=== PATIENT | female | born 1950 | race Caucasian/White ===

== ENCOUNTER 2022-11-04 23:13 | Inpatient (IN) | payer MEDICARE ==
[2022-11-05 01:07] VITALS: BMI 30.9
[2022-11-05] MEDS ORDERED: Dextrose 5% in Water 1,000 ML IV PRN (01:13)
[2022-11-05] MEDS ORDERED: Dextrose 50% Abboject 50 ML SYRINGE SLOW IVP PRN (01:13)
[2022-11-05] MEDS ORDERED: HumaLOG 300 UNITS/3 ML VIAL SC PRN (01:13)
[2022-11-05 02:42] LABS: Anion Gap 13 mmol/L (10-20); BUN (Urea Nitrogen) 37 mg/dL (9.8-20.1); Calc. Creatinine Clearance 62 mL/min (70-130); Calcium 7.8 mg/dL (7.8-10.44); Carbon Dioxide 21 mmol/L (23-31); Chloride 106 mmol/L (98-107); Estimated GFR 57; Glucose 226 mg/dL (83-110); Potassium 3.9 mmol/L (3.5-5.1); Sodium 136 mmol/L (136-145)
[2022-11-05] MEDS: Cefepime 1 GM in Sodium Chloride 0.9% 100 ML IVPB SCH ×2 (02:42→13:33)
[2022-11-05 02:47] LABS: Hemoglobin 12.9 g/dL (12.0-16.0); Mean Corpuscular HGB CONC 35.5 g/dL (32.0-36.0); Mean Corpuscular Hemoglobin 32.8 pg (27.0-31.0); Mean Corpuscular Volume 92.4 fl (78.0-98.0); RBC Distribution Width 11.5 % (11.5-14.5); Red Blood Cell (RBC) Count 3.94 mill/uL (4.20-5.40); White Blood Cell (WBC) Count 21.4 10x3/uL (4.8-10.8)
[2022-11-05 03:55] LABS: Band 14 % (5-11); Lymphocytes 3 % (21-51); MDiff Complete? YES; Mean Platelet Volume 10.7 fL (7.4-10.4); Metamyelocyte 1 % (0-0); Monocytes 3 % (0-10); Neutrophil 79 % (42-75); Platelet Clumps SLIGHT; Platelet Count 60 10x3/uL (130-400); Platelet Morphology Comment Appears Decreased; Polychromasia SLIGHT = 2-3 cells (100X) (0-2/hpf); Vacuoles SLIGHT
[2022-11-05] MEDS ORDERED: Sodium Chloride 0.9% 1,000 ML IV SCH (04:15)
[2022-11-05] MEDS: HumaLOG 300 UNITS/3 ML VIAL SC PRN (05:57)
[2022-11-05] MEDS: Acetaminophen 325 MG TAB PO PRN (10:53)
[2022-11-05] MEDS: Ondansetron PF 4 MG/2 ML Vial IVP PRN ×2 (13:32→20:53)
[2022-11-05] MEDS: Glimepiride 4 MG TAB PO SCH (16:35)
[2022-11-06] MEDS: Cefepime 1 GM in Sodium Chloride 0.9% 100 ML IVPB SCH ×2 (01:26→15:53)
[2022-11-06 04:38] LABS: Hemoglobin 13.1 g/dL (12.0-16.0); Mean Corpuscular HGB CONC 32.7 g/dL (32.0-36.0); Mean Corpuscular Hemoglobin 30.4 pg (27.0-31.0); Mean Corpuscular Volume 92.9 fl (78.0-98.0); Mean Platelet Volume 10.9 fL (7.4-10.4); Platelet Count 84 10x3/uL (130-400); RBC Distribution Width 11.5 % (11.5-14.5); Red Blood Cell (RBC) Count 4.32 mill/uL (4.20-5.40); White Blood Cell (WBC) Count 20.8 10x3/uL (4.8-10.8)
[2022-11-06 05:20] LABS: Anion Gap 15 mmol/L (10-20); BUN (Urea Nitrogen) 21 mg/dL (9.8-20.1); Calc. Creatinine Clearance 78 mL/min (70-130); Calcium 8.8 mg/dL (7.8-10.44); Carbon Dioxide 19 mmol/L (23-31); Chloride 107 mmol/L (98-107); Estimated GFR 75; Glucose 258 mg/dL (83-110); Potassium 3.8 mmol/L (3.5-5.1); Sodium 137 mmol/L (136-145)
[2022-11-06 05:45] LABS: Band 12 % (5-11); Eosinophils 2 % (0-10); Lymphocytes 11 % (21-51); MDiff Complete? YES; Monocytes 4 % (0-10); Neutrophil 71 % (42-75); Platelet Morphology Comment Appears Decreased
[2022-11-06] MEDS: Glimepiride 4 MG TAB PO SCH ×2 (08:11→17:37)
[2022-11-06] MEDS: Sertraline 25 MG TAB PO SCH (08:11)
[2022-11-06] MEDS: Amlodipine 10 MG TAB PO SCH (08:12)
[2022-11-06] MEDS: Ezetimibe 10 MG TAB PO SCH (08:12)
[2022-11-06] MEDS: HumaLOG 300 UNITS/3 ML VIAL SC PRN ×2 (12:13→17:37)
[2022-11-06] MEDS: Acetaminophen 325 MG TAB PO PRN ×2 (14:38→20:36)
[2022-11-06] MEDS: Melatonin 3 MG TAB PO PRN (20:35)
[2022-11-07] MEDS: Cefepime 1 GM in Sodium Chloride 0.9% 100 ML IVPB SCH (01:48)
[2022-11-07 05:20] LABS: Hemoglobin 12.8 g/dL (12.0-16.0); Mean Corpuscular HGB CONC 33.8 g/dL (32.0-36.0); Mean Corpuscular Hemoglobin 30.8 pg (27.0-31.0); Mean Corpuscular Volume 91.3 fl (78.0-98.0); Mean Platelet Volume 10.3 fL (7.4-10.4); Platelet Count 111 10x3/uL (130-400); RBC Distribution Width 11.6 % (11.5-14.5); Red Blood Cell (RBC) Count 4.17 mill/uL (4.20-5.40); White Blood Cell (WBC) Count 13.2 10x3/uL (4.8-10.8)
[2022-11-07 05:27] LABS: Anion Gap 15 mmol/L (10-20); BUN (Urea Nitrogen) 14 mg/dL (9.8-20.1); Calc. Creatinine Clearance 94 mL/min (70-130); Carbon Dioxide 22 mmol/L (23-31); Chloride 106 mmol/L (98-107); Estimated GFR 91; Glucose 197 mg/dL (83-110); Potassium 3.6 mmol/L (3.5-5.1); Sodium 139 mmol/L (136-145)
[2022-11-07 05:52] LABS: Band 3 % (5-11); Eosinophils 2 % (0-10); Lymphocytes 14 % (21-51); MDiff Complete? YES; Monocytes 7 % (0-10); Neutrophil 74 % (42-75); Platelet Morphology Comment Appears Decreased; Polychromasia SLIGHT = 2-3 cells (100X) (0-2/hpf); Tear Drops SLIGHT = 2-5 cells (100X) (0-1/hpf)
[2022-11-07] MEDS: Sertraline 25 MG TAB PO SCH (09:50)
[2022-11-07] MEDS: Glimepiride 4 MG TAB PO SCH ×2 (09:50→16:06)
[2022-11-07] MEDS: Amlodipine 10 MG TAB PO SCH (09:50)
[2022-11-07] MEDS: Ezetimibe 10 MG TAB PO SCH (09:50)
[2022-11-07] MEDS: Cefepime 2 GM in Sodium Chloride 0.9% 100 ML IVPB SCH (16:06)
[2022-11-07] MEDS: HumaLOG 300 UNITS/3 ML VIAL SC PRN (16:45)
[2022-11-07] MEDS: Ondansetron PF 4 MG/2 ML Vial IVP PRN (20:04)
[2022-11-07] MEDS: Melatonin 3 MG TAB PO PRN (20:04)
[2022-11-08] MEDS: Cefepime 2 GM in Sodium Chloride 0.9% 100 ML IVPB SCH (01:17)
[2022-11-08] MEDS: HumaLOG 300 UNITS/3 ML VIAL SC PRN (06:39)
[2022-11-08 08:12] VITALS: BP 165/75; TEMP 98
[2022-11-08] MEDS: Ezetimibe 10 MG TAB PO SCH (08:32)
[2022-11-08] MEDS: Glimepiride 4 MG TAB PO SCH (08:33)
[2022-11-08] MEDS: Amlodipine 10 MG TAB PO SCH (08:33)
[2022-11-08] MEDS: Sertraline 25 MG TAB PO SCH (08:33)
== END 2022-11-08 11:34 | disposition home or self-care (01) | DRG 872 ==
LOC: 2NO 11-05 00:37
PROVIDERS: ADMIT Internal Medicine; ATTEND Internal Medicine
DX: A41.4 Sepsis due to anaerobes (principal); N13.6 Pyonephrosis; N17.9 Acute kidney failure, unspecified; R65.20 Severe sepsis without septic shock; I10 Essential (primary) hypertension; E11.9 Type 2 diabetes mellitus without complications; D69.6 Thrombocytopenia, unspecified; F32.A Depression, unspecified; Z88.5 Allergy status to narcotic agent; Z79.899 Other long term (current) drug therapy; Z79.84 Long term (current) use of oral hypoglycemic drugs; Z83.3 Family history of diabetes mellitus; Z82.49 Family history of ischemic heart disease and other diseases of the circulatory system
CPT/HCPCS: 36415; 36416; 80048; 83605; 85025; J0692; J1815; J2405; J3490; J7050